=== PATIENT | male | born 1990 | race Caucasian/White ===

== ENCOUNTER 2018-11-02 15:34 | Emergency (ER) | payer OTHER ==
[2018-11-02] MEDS ORDERED: Ketorolac 60 MG/2 ML SDV IM ONE (16:21)
--- NOTE | 2018-11-02 16:35 | EDM.PDOC ---
ED HPI GENERAL MEDICAL PROBLEM - General Chief Complaint: General Stated Complaint: LEFT SHOULDER INJURY Time Seen by Provider: 11/02/18 16:07 Source of Information: Reports: Patient History Limitations: Reports: No Limitations - History of Present Illness INITIAL COMMENTS - FREE TEXT/NARRATIVE: HISTORY AND PHYSICAL: History of present illness: Patient is a 28-year-old male who presents to the emergency room with complaints of upper sternal chest pain. He states he tripped and fell landing face down onto the cement floor. He denies hitting his head or any loss of consciousness. He states that the upper sternum is painful and does have pain when taking in deep breaths or trying to relax his shoulders bilaterally. Review of systems: As per history of present illness and below otherwise all systems reviewed and negative. Past medical history: As per history of present illness and as reviewed below otherwise noncontributory. Surgical history: As per history of present illness and as reviewed below otherwise noncontributory. Social history: See social history for further information Family history: As per history of present illness and as reviewed below otherwise noncontributory. Physical exam: General: Well-developed and well-nourished 28-year-old male. Alert and oriented. Nontoxic appearing and in no acute distress. HEENT: Atraumatic, normocephalic, pupils equal and reactive bilaterally, negative for conjunctival pallor or scleral icterus, mucous membranes moist, TMs normal bilaterally, throat clear, neck supple, nontender, trachea midline. No drooling or trismus noted. No meningeal signs. No hot potato voice noted. Lungs: Clear to auscultation, breath sounds equal bilaterally, anterior upper chest is painful with palpation to the mid sternum. Heart: S1S2, regular rate and rhythm without overt murmur Abdomen: Soft, nondistended, nontender. Negative for masses. Negative for costovertebral tenderness. Pelvis: Stable nontender. Genitourinary: Deferred. Rectal: Deferred. Skin: Intact, warm, dry. No lesions or rashes noted. C-spine/Back: No pinpoint vertebral tenderness upon palpation. No crepitus, step -offs or obvious deformities. Patient is ambulatory into the emergency room without difficulty or deficits. He denies any numbness, tingling or saddle paresthesia. Denies any urinary or fecal incontinence. Extremities: Nontender with palpation, moves all extremities per self with difficulty or deficits. He is able to reach across and touch opposite hand to shoulder. He is negative for cords or calf pain. Neurovascular unremarkable. Neuro: Awake, alert, oriented. Cranial nerves II through XII unremarkable. Cerebellum unremarkable. Motor and sensory unremarkable throughout. Exam nonfocal. Notes: Patient states his main concern today is his sternum. He declines the need for a head CT at this time as he states there has been no loss of consciousness or hitting of his head. He is able to perform range of motion with bilateral shoulders, no pain or tenderness with palpation of the clavicle or scapula. Agreeable to a chest x-ray at this time. Will give IM Norflex and Toradol for pain management. Chest x-ray shows no acute findings. Supportive care measures were reviewed and discussed. Voices understanding and is agreeable to plan of care. Denies any further questions or concerns at this time. Diagnostics: CXR Therapeutics: Toradol and Norflex Prescription: Rochester (#20), Diclofenac (#30) Impression: Chest Wall Injury Plan: 1. Gentle activities over the next 24-72 hours. Ice for the first 24 hours then he may alternate ice and heat for comfort purposes. 2. Tylenol as needed for pain. You have been prescribed [place] for moderate to severe pain. This medication may cause drowsiness a do not take it will driving or needing to be functioning outside of the house. Diclofenac routinely over the next several days. This medication is and anti-inflammatory medications a do not take any additional NSAID such as ibuprofen or Aleve while taking this. Please take with food. 3. Follow-up with your primary care provider as we discussed. Return to the ED as needed and as discussed. Definitive disposition and diagnosis as appropriate pending reevaluation and review of above. Sternum Pain Score (Numeric/FACES): 8 - Related Data Allergies Allergy/AdvReac Type Severity Reaction Status Date / Time No Known Allergies Allergy Verified 11/02/18 16:06 Home Meds: Home Meds Acetaminophen/HYDROcodone [Rochester 325-5 MG] 1 dose PO Q4H PRN #20 tablet [Rx] Diclofenac Sodium [Voltaren] 75 mg PO BIDMEALS PRN #30 tab.cr 11/02/18 [Rx] Past Medical History - Past Health History Medical/Surgical History: Denies Medical/Surgical History - Past Surgical History HEENT Surgical History: Reports: Tonsillectomy Social & Family History - Family History Family Medical History: Noncontributory - Tobacco Use Smoking Status *Q: Current Every Day Smoker Years of Tobacco use: 15 Packs/Tins Daily: 0.5 - Recreational Drug Use Recreational Drug Use: No ED ROS GENERAL - Review of Systems Review Of Systems: ROS reveals no pertinent complaints other than HPI. ED EXAM, GENERAL - Physical Exam Exam: See Below (See dictation) Course - Vital Signs Last Recorded V/S: Last Vital Signs Temp 98.1 F 11/02/18 16:04 Pulse 95 11/02/18 16:04 Resp 16 11/02/18 16:04 BP 137/88 11/02/18 16:04 Pulse Ox 97 11/02/18 16:04 - Orders/Labs/Meds Orders: Active Orders 24 hr Category Date Time Status Chest 2V [CR] Stat Exams 11/02/18 16:21 Taken Meds: Medications Discontinued Medications Generic Name Dose Route Start Last Admin Trade Name Jennifer PRN Reason Stop Dose Admin Ketorolac Tromethamine 60 mg 11/02/18 16:21 11/02/18 16:48 Toradol IM 11/02/18 16:22 60 mg ONETIME ONE Administration Orphenadrine Citrate 60 mg 11/02/18 16:21 11/02/18 16:49 Norflex IM 11/02/18 16:22 60 mg NOW STA Administration Departure - Departure Time of Disposition: 17:21 Disposition: Home, Self-Care 01 Clinical Impression: Chest wall injury Qualifiers: Encounter type: initial encounter Qualified Code(s): S29.9XXA - Unspecified injury of thorax, initial encounter - Discharge Information Prescriptions: Acetaminophen/HYDROcodone [Rochester 325-5 MG] 1 dose PO Q4H PRN #20 tablet PRN Reason: Pain Diclofenac Sodium [Voltaren] 75 mg PO BIDMEALS PRN #30 tab.cr PRN Reason: Pain Instructions: Chest Wall Pain, [id number] Referrals: PCP,None [Primary Care Provider] - Forms: ED Department Discharge Additional Instructions: The following information is given to patients seen in the emergency department who are being discharged to home. This information is to outline your options for follow-up care. We provide all patients seen in our emergency department with a follow-up referral. The need for follow-up, as well as the timing and circumstances, are variable depending upon the specifics of your emergency department visit. If you don't have a primary care physician on staff, we will provide you with a referral. We always advise you to contact your personal physician following an emergency department visit to inform them of the circumstance of the visit and for follow-up with them and/or the need for any referrals to a consulting specialist. The emergency department will also refer you to a specialist when appropriate. This referral assures that you have the opportunity for follow-up care with a specialist. All of these measure are taken in an effort to provide you with optimal care, which includes your follow-up. Under all circumstances we always encourage you to contact your private physician who remains a resource for coordinating your care. When calling for follow-up care, please make the office aware that this follow-up is from your recent emergency room visit. If for any reason you are refused follow-up, please contact the [facility] at and asked to speak to the emergency department charge nurse. [facility] [address] [place] [address] [place] [address] 1. Gentle activities over the next 24-72 hours. Ice for the first 24 hours then he may alternate ice and heat for comfort purposes. 2. Tylenol as needed for pain. You have been prescribed [place] for moderate to severe pain. This medication may cause drowsiness a do not take it will driving or needing to be functioning outside of the house. Diclofenac routinely over the next several days. This medication is and anti-inflammatory medications a do not take any additional NSAID such as ibuprofen or Aleve while taking this. Please take with food. 3. Follow-up with your primary care provider as we discussed. Return to the ED as needed and as discussed. - My Orders Last 24 Hours: My Active Orders 11/02/18 16:21 Chest 2V [CR] Stat - Assessment/Plan Last 24 Hours: My Active Orders 11/02/18 16:21 Chest 2V [CR] Stat
--- NOTE | 2018-11-02 18:15 | CR ---
INDICATION: Pt fell at work today and felt a "popping" in his sternum and is now having troubles breathing 2 View Chest. Findings: The lungs are clear. Pulmonary vascularity, mediastinum and cardiac silhouette are within normal limits. No effusions and no pneumothorax. Osseous structures appear unremarkable. Impression: No evidence of acute cardiopulmonary disease. Dictated by: Lv Toussaint MD @ 11/02/2018 18:13:36 (Electronically Signed)
== END 2018-11-02 18:22 | disposition home or self-care (01) ==
LOC: MW.ED 15:34
DX: S29.9XXA Unspecified injury of thorax, initial encounter (principal); F17.210 Nicotine dependence, cigarettes, uncomplicated; W01.0XXA Fall on same level from slipping, tripping and stumbling without subsequent striking against object, initial encounter
CPT/HCPCS: 71046; 96372; 99283; J1885; J2360